=== PATIENT | female | born 1970 | race Caucasian/White ===

== ENCOUNTER 2023-12-07 09:51 | Day surgery (SDC) | payer BC ==
[2023-12-06 11:51] VITALS: BMI 33.2
[2023-12-07 10:21] VITALS: RESP 16; TEMP 97.9
[2023-12-07] MEDS: LACTATED RINGERS 1,000 ML IV SCH (10:21)
[2023-12-07] MEDS: LIDOCAINE 1% (10MG/ML) FOR IV START INTRADERMA PRN (10:21)
[2023-12-07] MEDS: IV FLUID CONTINUATION 1,000 ML IV ONE (10:25)
[2023-12-07] MEDS ORDERED: LIDOCAINE 1% INJ 10MG/ML (20 ML MDV) ONE (10:32)
[2023-12-07] MEDS ORDERED: PROPOFOL 10 MG/ML 20 ML VIAL IV ONE (10:32)
--- NOTE | 2023-12-07 10:50 | P.PCN ---
Date of Procedure: 12/07/23 Procedure(s) Performed: BRIEF HISTORY: Patient is a 53-year-old pleasant white female scheduled for an elective colonoscopy as a part of screening for colon cancer. PROCEDURE PERFORMED: Colonoscopy with snare polypectomy. PREOPERATIVE DIAGNOSIS: Screening for colon cancer. IV sedation per Anesthesia. PROCEDURE: After informed consent was obtained, the patient, was brought into the endoscopy unit. IV sedation was administered by Anesthesia under continuous monitoring. Digital rectal examination was normal. Initially the Olympus CF-160 flexible video colonoscope was then inserted in the rectum, gradually advanced into the cecum without any difficulty. Careful examination was performed as the scope was gradually being withdrawn. Ileocecal valve and the appendiceal orifice were visualized and appeared normal. Prep was excellent. Mucosa of the cecum, ascending colon, transverse colon, descending colon, normal. In the distal sigmoid colon at 25 cm from the anal there was a 1.2 cm pedunculated polyp that was removed by snare polypectomy. Scattered sigmoid diverticulosis seen. Rest of the sigmoid colon, and rectum appeared normal. Retroflexion was performed in the rectum and no lesions were seen. The patient tolerated the procedure well. IMPRESSION: 1.2 cm pedunculated distal sigmoid colon polyp at 25 cm from the anal verge s/p snare polypectomy Scattered sigmoid diverticulosis RECOMMENDATIONS: Findings of this examination were discussed with the patient as well as her family. She was advised to follow-up with the biopsy results. If the biopsy reveals adenoma she can have repeat colonoscopy in 3 years
[2023-12-07 10:58] VITALS: BP 147/81; PULSE 68
== END 2023-12-07 11:29 | disposition home or self-care (01) ==
LOC: ORWHC2ENDO 09:51
PROVIDERS: ATTEND Internal Medicine Gastroenterology
DX: R19.5 Other fecal abnormalities
CPT/HCPCS: 45385; 81025; 88305